=== PATIENT | female | born 1940 | race Two or more races ===

== ENCOUNTER 2024-06-12 23:19 | Emergency (ER) | payer MEDICAID, SELFPAY ==
[2024-06-12 23:22] VITALS: PULSE 110; O2SAT 95
[2024-06-12 23:25] VITALS: BP 135/99; PULSE 115; RESP 24; TEMP 39.6; O2SAT 96
--- NOTE | 2024-06-12 23:26 | EKG_ITS ---
[facility] Test Date: 2024-06-12 Pat Name: MERRY GOMEZ Department: Room: - Gender: Female Manager Net: : [id number] Requested By: Heidy Navarro Order Number: [id number] Reading MD: Heidy Navarro Measurements Intervals Babb Rate: 103 P: ID: QRS: -46 QRSD: 94 T: 57 QT: 317 QTc: 415 Interpretive Statements ATRIAL FLUTTER/TACHYCARDIA WITH RAPID VENTRICULAR RESPONSE PATTERN CONSISTENT WITH PULMONARY DISEASE LEFT ANTERIOR FASCICULAR BLOCK [QRS AXIS <= -45, QR IN I, RS IN II] Compared to ECG 08/05/2023 14:35:40 Left anterior fascicular block now present Atrial fibrillation no longer present Left-axis deviation no longer present /store/S0/[id number]/[id number].pdf
[2024-06-12 23:28] VITALS: BMI 26.5
--- NOTE | 2024-06-12 23:46 | XR_ITS ---
Examination: PA lateral chest 2 views TECHNIQUE: Upright PA and lateral chest 2 views Exam date and time: June 13, 2024 0001 hours Comparison July 20, 2019 INDICATION: Shortness of breath today. FINDINGS: Mild lower quadrant cardiac contour Mild vascular congestion. Lobar pneumonia. Prominent osteopenia IMPRESSION: Mild vascular congestion.
--- NOTE | 2024-06-12 23:58 | PD.EDSOB ---
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 Patient reports 3 days of worsening cough, congestion, pleuritic chest pain, and shortness of breath. Patient states she went to her PCP at [facility] on Saturday 06/10 and was prescribed a 3-day course of azithromycin, was supposed to have a follow up appointment on Tuesday 06/13. Patient also reports dysuria and urinary frequency for 3 days. The patient denies any abdominal pain, nausea, vomiting or any other pain at this time. Initial vitals via EMS BP 144/80, HR 110 showing afib, 95% O2 on RA. MD Complaint: shortness of breath, cough, pain with inspiration and chest pain Onset (ago): day(s) Context: recent illness Severity: moderate Consistency/Duration: constant Relieving factors: nothing Exacerbating factors: coughing and inspiration Known history of: diabetes Associated symptoms: chest pain, pain with inspiration, fever, cough, wheezing, sputum production and polyuria Treatment prior to arrival: bronchodilator Related Data Home oxygen amount: none Home Medications ?Medication ?Instructions ?Recorded ?Confirmed loratadine 10 mg tablet 10 mg PO QDAY 07/20/19 07/20/19 sitagliptin phosphate 50 1 tab PO BID 07/20/19 07/20/19 mg-metformin 1,000 mg tablet (Janumet) Previous Rx's ?Medication ?Instructions ?Recorded apixaban 5 mg tablet (Eliquis) 5 mg PO BID #60 tabs 07/23/19 atorvastatin 40 mg tablet 40 mg PO QPM #30 tabs 07/23/19 lisinopril 20 mg tablet 30 mg (1.5 x 20 mg) PO QDAY #0 tabs 07/23/19 amoxicillin 875 mg-potassium 1 tab PO BID pneumonia 7 days #14 06/13/24 clavulanate 125 mg tablet tabs Allergies Allergy/AdvReac Type Severity Reaction Status Date / Time No Known Allergies Allergy Verified 04/10/23 19:46 Past Medical History Past Medical History Comments PMH COMMENT: Past Medical History: Ischemic CVA with chronic right-sided residual deficits, chronic atrial fibrillation on Eliquis, non-insulin dependent type 2 diabetes mellitus, hypertension, and hyperlipidemia Family History: No reported family history of cardiac diseases Surgical History: Back surgery Social History: Denies history of smoking, denies current alcohol use, denies recreational drug use Current Medications: Eliquis 5 mg BID, patient does not remember names of rest of medications (Source: Patient) Allergies: No known drug allergies ED Exam Narrative Physical exam: Physical Exam General: Awake and in no acute distress. Elderly female, conversational and non-toxic appearing. HEENT: Normocephalic, atraumatic, mucous membranes moist. Heart: Regular rate and rhythm, no murmurs. Lungs: Bilateral rhonchi with wheezing. Wet upper airway noises and cough triggered upon inspiration. Abdomen: Soft, nondistended, nontender, positive bowel sounds. ?No guarding or rebound tenderness. Neurologic: Alert and oriented x3, no gross neurological deficit, and patient able to move all 4 extremities. Extremities: No edema. Skin: No rash or ecchymoses. Course Course Course Narrative: 23:33 Sepsis alert was called. Sepsis bundle labs ordered, cultures ordered. 2L of lactated ringers bolus ordered for 30 cc/kg. 05:00 Patient re-evaluated throughout the night. She was able to maintain 93-94% while sleeping, on room air. Vitals have stablized, HR 70-80s NSR, RR 20, and lactic acid normal. Patient received doses of IV ceftriaxone and IV doxycycline. She received a breathing treatment with ipratropium and levalbuterol. Patient CURB-65 score is 1-2. Will discharge patient to home with 7-day couse of Augmentin. Advised to closely follow up with her PCP. Quality Measures Current suspected stage: sepsis Possible source: pulmonary and genitourinary Blood cultures ordered: yes Antibiotic ordered: Yes Pertinent labs: 06/13/24 06/13/24 06/13/24 00:52 00:57 05:08 Lactic Acid 3.6 H mMol/L 2.0 mMol/L (0.4-2.0) (0.4-2.0) Procalcitonin 0.12 ng/ml (0.0-0.49) sepsis Orders Category Date Time Status Doweler STAT Care 06/12/24 23:46 Active Continuous Pulse Oximetry STAT Care 06/12/24 23:46 Completed EKG (ED ONLY) *Do not use* NOW Care 06/12/24 23:26 Completed EKG (ED ONLY) *Do not use* NOW Care 06/12/24 23:46 Completed Insert IV NOW Care 06/12/24 23:46 Active EKG (ED Only) Stat Exams 06/12/24 23:26 Draft EKG (ED Only) Stat Exams 06/12/24 23:46 Ordered XR chest 2V Stat Exams 06/12/24 23:46 Taken Blood Culture (Lab) Stat Lab 06/12/24 23:46 Received CBC Stat Lab 06/12/24 23:46 Completed Comprehensive Metabolic Panel Stat Lab 06/12/24 23:46 Completed Lactate (Lactic Acid) Stat Lab 06/12/24 23:46 Completed Lactic Acid [Lactate (Lactic Acid)] Routine Lab 06/13/24 05:08 Completed Magnesium Stat Lab 06/12/24 23:46 Completed Partial Thromboplastin Time Stat Lab 06/12/24 23:46 Completed Phosphorous Stat Lab 06/12/24 23:46 Completed Procalcitonin Stat Lab 06/12/24 23:46 Completed Prothrombin Time with INR Stat Lab 06/12/24 23:46 Completed Sputum Culture and Gram Stain Stat Lab 06/12/24 00:10 Received Troponin I Stat Lab 06/12/24 23:46 Completed Urinalysis Stat Lab 06/12/24 23:46 Completed Urine Culture Stat Lab 06/12/24 23:46 Ordered Acetaminophen Ivpb [Ofirmev Inj] Med 06/13/24 00:53 Active 1,000 mg in 100 ml IV Q6HR Doxycycline Inj [Vibramycin Inj] 200 mg Med 06/13/24 01:40 Discontinued Sodium Chloride 0.9% 250 ml [Ns] 250 ml IV X1 Ipratropium [place] Rt Astrid [Atrovent Rt Astrid] Med 06/13/24 00:25 Discontinued 0.5 mg INH X1 ONE Levalbuterol Rt [Xopenex Rt Astrid] Med 06/13/24 00:25 Discontinued 0.63 mg INH X1 ONE Magnesium Sulfate 4 GM Ivpb [Magnesium Sulfate Ivpb] Med 06/13/24 01:59 Active 4 gm in 50 ml IV X1 Naph,Kph Mbdb [Neutra-Phos Pkt] Med 06/13/24 01:59 Discontinued 1 packet PO X1 ONE Ringers Lactated 1000 ml [Lactated Ringers] 1,000 ml Med 06/12/24 23:46 Discontinued IV 999 mls/hr Ringers Lactated 1000 ml [Lactated Ringers] 1,000 ml Med 06/12/24 23:55 Discontinued IV 999 mls/hr Sodium Chloride Rt Astrid 10% [NS Rt Astrid 10%] Med 06/12/24 23:46 Discontinued 5 ml INH X1 ONE cefTRIAXone [Rocephin] 1,000 mg Med 06/13/24 01:40 Discontinued Sodium Chloride 0.9% [Ns] 50 ml IV X1 Oxygen Delivery NOW RT 06/12/24 23:46 Active Sputum Induction PRN RT 06/12/24 23:48 Ordered Vital Signs Vital signs: Vital Signs Temperature 103.2 F H 06/12/24 23:25 Pulse Rate 115 H 06/12/24 23:25 Respiratory Rate 24 H 06/12/24 23:25 Blood Pressure 135/99 H 06/12/24 23:25 Pulse Oximetry (%) 96 06/12/24 23:25 Oxygen Delivery Method Room Air 06/12/24 23:25 Shortness of Breath / Dyspnea Patient data External records reviewed:: [facility] previous records Clinical information provided by:: patient and family Social determinants that could affect healthcare access:: none Patient has the following chronic illnesses:: Ischemic CVA with chronic right-sided residual deficits, chronic atrial fibrillation on Eliquis, non-insulin dependent type 2 diabetes mellitus, hypertension, and hyperlipidemia How is presenting disease/condition affected by chronic disease/condition?: exacerbated by Evaluation data The following diagnostics were reviewed and interpreted by me:: lab results, radiology exam(s) and EKG tracing(s) Lab and/or radiology exams considered but not ordered:: CTA chest Interpretation Summary: . Medications / Prescriptions Medications or Prescriptions considered but not ordered:: None Medication administrations:: Medication Administration History Acetaminophen (Ofirmev Inj) 1,000 mg in 100 mls @ 250 mls/hr IV Q6HR SCOTT Stop: 06/13/24 18:23 Last Infusion: 06/13/24 02:14 Dose: Infused Documented By: Admin: 06/13/24 01:50 Dose: 250 mls/hr Documented By: LB Magnesium Sulfate (Magnesium Sulfate Ivpb) 4 gm in 50 mls @ 12.5 mls/hr IV X1 ONE Stop: 06/13/24 05:58 Discontinued Medications Lactated Ringer's (Lactated Ringers) 1,000 mls @ 999 mls/hr IV .Q1H1M ONE Stop: 06/13/24 00:46 Last Infusion: 06/13/24 01:20 Dose: Infused Documented By: Admin: 06/13/24 00:19 Dose: 999 mls/hr Documented By: LB Lactated Ringer's (Lactated Ringers) 1,000 mls @ 999 mls/hr IV .Q1H1M ONE Stop: 06/13/24 00:55 Last Infusion: 06/13/24 02:01 Dose: Infused Documented By: Admin: 06/13/24 01:00 Dose: 999 mls/hr Documented By: ANDREI Ceftriaxone Sodium 1,000 mg/ (Sodium Chloride) 50 mls @ 100 mls/hr IV X1 ONE Stop: 06/13/24 02:09 Last Infusion: 06/13/24 02:28 Dose: Infused Documented By: Admin: 06/13/24 01:58 Dose: 100 mls/hr Documented By: ANDREI Doxycycline Hyclate 200 mg/ (Sodium Chloride) 250 mls @ 125 mls/hr IV X1 ONE Stop: 06/13/24 03:39 Last Infusion: 06/13/24 04:19 Dose: Infused Documented By: Admin: 06/13/24 02:50 Dose: 125 mls/hr Documented By: KG Ipratropium [place] (Ipratropium Rt 0.5 Mg/ 2.5 Ml Nebu) 0.5 mg INH X1 ONE Stop: 06/13/24 00:26 Last Admin: 06/13/24 03:00 Dose: 0.5 mg Documented By: EMILIE Levalbuterol HCl (Levalbuterol Rt 0.63 Mg/3 Ml Nebu) 0.63 mg INH X1 ONE Stop: 06/13/24 00:26 Last Admin: 06/13/24 03:00 Dose: 0.63 mg Documented By: EMILIE Potassium Phos/Sodium Phos (Naph,[facility] Mbdb 1 Packet (1.5 Gm)) 1 packet PO X1 ONE Stop: 06/13/24 02:00 Sodium Chloride (Sodium Chloride Rt 10% 15 Ml Nebu) 5 ml INH X1 ONE Stop: 06/12/24 23:47 Last Admin: 06/13/24 03:03 Dose: Not Given Documented By: NE Non-Admin Reason: Other, see note Comments: pt able to expectorate sputum sent to lab ^ Consultations Consultation(s) initiated? (list below): No Diagnosis Shortness of Breath Differential Diagnosis: community acquired pneumonia Most likely diagnosis given after review of the tests above:: Community acquired pneumonia Admission Indicated Admission indicated?: not indicated Admission Request Was there a request for admission?: No Disposition Plan Disposition Plan: Discharge Discharge Attestation Discharge Attestation: The patient and all family members were given an opportunity to ask questions and understood the discharge instructions. Discharge instructions specifically effects, indications for sooner follow up or return to the emergency department, and the expected course of current diagnosis. Patient condition: Stable Discharge Plan Plan Patient Disposition: HOME (Self Care) Patient condition on transfer: Stable Prescriptions/Referrals Prescriptions/Med Rec: New amoxicillin-pot clavulanate 875-125 mg tablet 1 tab PO BID 7 Days Qty: 14 0RF No Action loratadine 10 mg Tablet 10 mg PO QDAY Janumet 50-1,000 mg Tablet 1 tab PO BID Eliquis 5 mg tablet 5 mg PO BID Qty: 60 0RF atorvastatin 40 mg tablet 40 mg PO QPM Qty: 30 0RF lisinopril 20 mg Tablet 30 mg PO QDAY Qty: 0 0RF Referrals: Roly Bustamante PA-C [Primary Care Provider] - In 1 week Problem List Clinical Impression: Community acquired pneumonia Patient/Caregiver Discharge Instructions Education Materials: What Is Pneumonia?, Preventing Pneumonia, Treating Pneumonia Additional Instructions: 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 Please follow up with your primary doctor in the next 1-3 days for the pneumonia. Please have your primary care doctor follow up with culture results from [place]. Recoja la receta y tome el antibi?yojana Augmentin dos veces al d?a akila los pr?ximos 7 d?as. Realice un seguimiento con [place] m?dico de cabecera en los pr?ximos 1 a 3 d?as por la neumon?a. Solicite a beckwith m?dico de atenci?n primaria que realice un seguimiento con los resultados del cultivo de [place]. Print Language: Indonesian Stand Alone Forms: [employer] Award Info., Patient Portal Info Letter
[2024-06-13] VITALS (7 sets, daily range): BP systolic 116–137; BP diastolic 59–84; PULSE 76–90; RESP 18–209; TEMP 36.6–36.7; O2SAT 93–100
--- NOTE | 2024-06-13 00:17 | PC.NURSE ---
Initial contact with pt.
[2024-06-13] MEDS: RINGERS LACTATED 1000 ML 1,000 ML 999 ML IV ×2 (00:19→01:00)
[2024-06-13 00:20] LABS: Collection Type, Urine Clean Catch; Squamous Epithelial Cell,Urine 0 /hpf (0-5)
[2024-06-13 00:32] LABS: Bacteria,Urine 4+; Bilirubin,Urine Negative (Negative); Blood,Urine 2+ (Negative); Clarity,Urine Turbid (Clear/Hazy); Color,Urine Yellow (Lt Yel-Yel); Glucose, Urine 2+ (Negative); Ketones,Urine Trace (Negative); Leukocyte Esterase,Urine Positive (Negative); Nitrite,Urine Negative (Negative); Protein,Urine 2+ (Neg - Trace); RBC,Urine 34 /hpf (0-3); Specific Gravity,Urine 1.027 (1.001-1.035); WBC,Urine 68 /hpf (0-5)
[2024-06-13 01:06] LABS: Lactate (Lactic Acid) 3.6 mMol/L (0.4-2.0)
[2024-06-13 01:09] LABS: Basophils % (Auto) 0 % (0-2.5); Eosinophils % (Auto) 0 % (0-10); Hematocrit 27.8 % (36.0-46.0); Hemoglobin 9.6 g/dL (12.0-16.0); Immature Granulocytes % (Auto) 1 % (0-0); Immature Granulocytes Auto 0.05 Thou/mm3 (0.00-0.00); Lymphocytes # (Auto) 1.1 Thou/mm3 (1.0-4.8); Lymphocytes % (Auto) 13 % (10-50); Mean Corpuscular HGB Conc 34.5 g/dl (31.0-37.0); Mean Corpuscular Hemoglobin 30.3 pg (25.0-35.0); Mean Corpuscular Volume 88 fL (80-100); Monocytes # (Auto) 0.7 Thou/mm3 (0.0-0.8); Monocytes % (Auto) 8 % (0-12); Neutrophils # (Auto) 7.2 Thou/mm3 (1.8-7.7); Neutrophils % (Auto) 79 % (37-80); Nucleated Red Blood Cell % 0 /100 WBC (0); Platelet Count 239 Thou/mm3 (140-440); RDW Standard Deviation 47.6 fL (36.4-46.3); Red Blood Count 3.17 Miln/mm3 (4.00-5.20); White Blood Count 9.1 Thou/mm3 (3.6-11.0)
[2024-06-13 01:21] LABS: INR 1.2 (0.9-1.3); Partial Thromboplastin Time 36.2 Seconds (22.0-36.0); Prothrombin Time 13.4 Seconds (9.0-12.2)
[2024-06-13 01:32] LABS: Alanine Aminotransferase 15 U/L (10-49); Albumin, Serum 3.6 gm/dL (3.4-4.8); Albumin/Globulin Ratio 1.4 (1.2-2.2); Alkaline Phosphatase 53 U/L (46-116); Anion Gap 8 (7-16); Aspartate Amino Transferase 13 U/L (0-34); BUN/Creatinine Ratio 16 Ratio (12-20); Bilirubin,Total 0.4 mg/dL (0.3-1.2); Blood Urea Nitrogen 13 mg/dL (9-23); Calcium 8.5 mg/dL (8.3-10.6); Calcium (Corrected) 8.8 mg/dL (8.5-10.1); Carbon Dioxide 25.6 mMol/L (20.0-31.0); Chloride 97 mMol/L (98-107); Creatinine (Component) 0.8 mg/dL (0.6-1.3); Estimated Creatinine Clearance 45.8 mL/min (>60); Globulin 2.5 gm/dL (2.3-3.5); Glucose 199 mg/dL (74-106); Magnesium 1.4 mg/dL (1.6-2.6); Osmolality,Calculated 268 (275-295); Phosphorous 2.3 mg/dL (2.4-5.1); Potassium 4.5 mMol/L (3.4-5.1); Procalcitonin 0.12 ng/ml (0.0-0.49); Sodium 131 mMol/L (136-145); Total Protein 6.1 gm/dL (5.7-8.2); Troponin I < 0.020 ng/mL (0.0-0.045); eGFR > 60 See Note
[2024-06-13] MEDS: ACETAMINOPHEN IVPB 1,000 MG/100 ML VIAL 250 MG IV (01:50)
[2024-06-13] MEDS: DOXYCYCLINE INJ 200 MG in SODIUM CHLORIDE 0.9% 250 ML 250 ML 125 MG IV (02:50)
[2024-06-13] MEDS: IPRATROPIUM RT 0.5 MG/ 2.5 ML NEBU INH (03:00)
[2024-06-13] MEDS: LEVALBUTEROL RT 0.63 MG/3 ML NEBU INH (03:00)
[2024-06-13 04:02] LABS: Reflex Lactate? Y
--- NOTE | 2024-06-13 05:29 | PC.NURSE ---
Called lighthouse keeper for 4g bag of magnesium sulfate as it is not stocked in the ED pyxis.
== END 2024-06-13 06:43 | disposition home or self-care (01) ==
PROVIDERS: Student in an Organized Health Care Education/Training Program; Emergency Provider Emergency Medicine; PCP Physician Assistant
DX: J18.9 Pneumonia, unspecified organism (principal); I69.30 Unspecified sequelae of cerebral infarction; E11.9 Type 2 diabetes mellitus without complications; I10 Essential (primary) hypertension; E78.5 Hyperlipidemia, unspecified
CPT/HCPCS: 36415; 71046; 80053; 81001; 83605; 83735; 84100; 84145; 84484; 85025; 85610; 85730; 87040; 87077; 87086; 87186; 87205; 87400; 87811; 93005; 94640; 96361; 96365; 96366; 99285; J0131; J0696; J3490; J7050; J7120